=== PATIENT | female | born 1975 | race Hispanic/Latino ===

== ENCOUNTER → 2022-08-07 | Day surgery (SDC) | payer BC ==
[2022-08-05 15:33] VITALS: BMI 23.8
[~2022-08-07] MED LIST: Acetaminophen 325 MG TAB PO PRN; Bupivacaine PF 0.5% 30 ML VIAL ONE; CEFAZOLIN 2 GM VIAL ONE; Dexamethasone 20 MG/5 ML VIAL ONE; EPINEPHrine 1 MG/ML AMP ONE; Glycopyrrolate 0.2 MG/ML 5 ML SYRINGE ONE; HYDROcodone/Acetaminophen 5/325 mg Tablet PO PRN; Isosulfan Blue 50 MG/5 ML VIAL ONE; Meperidine HCl/PF 25 MG/ML VIAL ONE; Ondansetron PF 4 MG/2 ML Vial ONE; PHENYLEPHRINE-NS 100 MCG/ML 10 ML SYRINGE ONE; PROPOFOL 20 ML ONE; PROPOFOL 200 MG/20 ML VIAL ONE
== END | disposition home or self-care (01) ==
LOC: CSHMAMMO 07:05
PROVIDERS: ATTEND Surgery
PROC: 0HBU0ZZ Excision of Left Breast, Open Approach (ICD-10-PCS; principal; 2022-08-07)
DX: D05.10 Intraductal carcinoma in situ of unspecified breast (principal); Z79.2 Long term (current) use of antibiotics; Z79.899 Other long term (current) drug therapy
CPT/HCPCS: 19281; 76098; 88307; C1713; J0171; J1100; J2175; J2405; J2704; Q9968; S0020

== ENCOUNTER 2022-09-01 15:15 | Outpatient (CLI) | payer BC | END 2022-09-01 15:16 | disposition home or self-care (01) | LOC: CSHLAB 15:15 | PROVIDERS: ATTEND Student in an Organized Health Care Education/Training Program | DX: Z01.812 Encounter for preprocedural laboratory examination (principal); D05.10 Intraductal carcinoma in situ of unspecified breast | CPT/HCPCS: 84703; 85027; 86850; 86900; 86901 ==